=== PATIENT | female | born 1980 | race Caucasian/White ===

== ENCOUNTER 2016-10-27 15:40 | Emergency (ER) | payer OTHER ==
[2016-10-27 15:51] VITALS: RESP 18
[2016-10-27] MEDS ORDERED: FAMOTIDINE 20 MG TAB PO ONE (16:23)
[2016-10-27] MEDS ORDERED: DEXAMETHASONE 4 MG TAB PO ONE (16:23)
--- NOTE | 2016-10-27 16:32 | EDPHY ---
H & P Time Seen by Provider: 10/27/16 16:28 HPI/ROS: HPI: 36-year-old female presents to emergency department with chief concern possible allergic reaction, itchy. Symptoms onset at 2:30 p.m. 1 hour after eating a salad that may have had blue cheese particles in it. 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 She reports blotchy rash under her breasts on her abdomen and inner arms. She denies fever, chills, URI symptoms, shortness of breath, angioedema, dysphagia, chest pain, abdominal pain, nausea or vomiting. Took a Zyrtec at 3:00 p.m. with some improvement in symptoms. 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 No acute distress. Head: Normalocephalic. Atraumatic. EENT: PERRLA. EOMI. No pallor or injection. Anicteric. No nystagmus. No injection. TMs intact bilaterally with normal landmarks. No rhinnorhea, nasal passages clear. Oropharynx without redness, exudates, or lesions. No oropharyngeal swelling. Tonsils 2+ bilaterally, no exudates. Neck: Supple, nontender. No lymphadenopathy. Full range of motion. No meningismus. Respiratory: Breathing unlabored. Breath sounds equal bilaterally and clear to auscultation. No adventitious sounds. CV: Chest nontender, atraumatic. Heart rate regular. No murmur, distal pulses 2+ bilaterally. Brisk cap refill all extremities. GI: Abdomen soft, nontender. Bowel sounds normoactive and positive x4 quadrants. Neuro: Alert. Oriented x 3. Speech clear. Nonfocal cranial nerves throughout. Sensation intact all extremities. Skin: Skin warm, dry, intact. Skin turgor normal. Extremities: Full range of motion in all 4 extremities. Strength 5+ all extremities. Constitutional: Initial Vital Signs Temperature (C) 36.9 C 10/27/16 15:48 Heart Rate 88 10/27/16 15:48 Respiratory Rate 18 10/27/16 15:48 Blood Pressure 120/99 H 10/27/16 15:48 O2 Sat (%) 20 L 10/27/16 15:48 O2 Delivery Mode Room Air Allergies/Adverse Reactions: No Known Allergies Allergy (Unverified 10/27/16 15:47) Home Medications: Medication Instructions Recorded EPINEPHRINE [EPIPEN] 0.3 mg IM ONCE #2 syr 10/27/16 ZYRTEC 10/27/16 Medical Decision Making ED Course/Re-evaluation: 36-year-old female presents to emergency department with pruritus within 1 hour after eating a salad that may have had particles of bleed she is in it from [employer]. She has an anaphylactic reaction to blue cheese. She is in no respiratory distress whatsoever. Lungs are clear to auscultation bilaterally. She has no angioedema. Vitals are stable. Her itching and rash have begun to improve. She took is Zyrtec at 3:00 p.m.. I have ordered 12 mg oral Decadron, 20 mg oral Pepcid. She will be watched for 45 minutes to an hour to ensure resolution of symptoms. 1720: Pruritus has largely resolved. Patient has no symptoms of respiratory distress. She has no symptoms of angioedema. She is stable and ready for discharge. She has been counseled regarding need for prompt follow-up and return to emergency department should she have any worsening of symptoms. Differential Diagnosis: Allergic reaction, rash, anxiety - Data Points Medications Given: Discontinued Medications Dexamethasone (Decadron) 12 mg PO EDNOW ONE Stop: 10/27/16 16:24 Last Admin: 10/27/16 16:31 Dose: 12 mg Famotidine (Pepcid) 20 mg PO EDNOW ONE Stop: 10/27/16 16:24 Last Admin: 10/27/16 16:30 Dose: 20 mg Departure - Departure Disposition: Home, Routine, Self-Care Clinical Impression: Allergic reaction Condition: Good Instructions: General Allergic Reaction (ED) Additional Instructions: Plan: You were given 12 mg of oral Decadron, and 20 mg oral Pepcid in addition to the Zyrtec that you took. Benadryl 25-50 mg at bedtime tonight Tomorrow, may use 20 mg Pepcid in the morning if symptoms should persist For worsening symptoms despite treatment plan please return promptly to the emergency department. Otherwise, follow up with primary care [facility] of [facility] in the next 1-2 days for recheck without fail--When you call to schedule appointment, please let the office know you are an "ER follow up" appointment" Referrals: NONE *PRIMARY CARE P,. [Primary Care Provider] - As per Instructions Prescriptions: EPINEPHRINE [EPIPEN] 0.3 mg IM ONCE #2 syr
[2016-10-27 17:44] VITALS: BP 125/77; PULSE 82; TEMP 98.8; O2SAT 95
== END 2016-10-27 17:44 | disposition home or self-care (01) ==
DX: T78.40XA Allergy, unspecified, initial encounter (principal)